=== PATIENT | male | born 1940 | race Caucasian/White ===

== ENCOUNTER → 2018-11-10 | Outpatient (CLI) | payer MEDICARE ==
--- NOTE | 2018-11-10 07:33 | CT ---
EXAMINATION TYPE: CT abdomen pelvis wo con DATE OF EXAM: 11/10/2018 COMPARISON: 04/10/2016 HISTORY: Chronic UTI CT DLP: 706.5 mGycm Examination of the solid and hollow viscera is limited given the lack of contrast. FINDINGS: LUNG BASES: No evidence for nodule. No evidence for infiltrate. LIVER/GB: The gallbladder is unremarkable. No space-occupying hepatic lesion. PANCREAS: No pancreatic mass identified. No inflammatory process seen. SPLEEN: No evidence for splenomegaly. No intrasplenic lesions seen. ADRENALS: No adrenal nodules identified. No evidence for thickening. KIDNEYS: No evidence for renal mass. 7.9 mm nonobstructing calculus lower pole left kidney. No hydron ephrosis. The urinary bladder is thick walled and poorly distended. There is a large diverticulum not ed posteriorly and to the right of midline measuring 3.6 x 4.2 cm. BOWEL: Appendix has a normal appearance. No evidence of bowel obstruction. No inflammatory process. P ostsurgical changes of the sigmoid colon. Lymph nodes: No evidence for adenopathy greater than 1 cm. Abdominal aorta: Atheromatous changes seen. 3.1 cm AP dimension aneurysm of the abdominal aorta. Viridiana alva organs: No significant abnormality. Other: No significant abnormality. IMPRESSION: 1. Nonobstructing right-sided nephrolithiasis. 2. The urinary bladder is poorly distended with the thick wall noted. Bladder diverticulum as discuss ed.
== END | disposition home or self-care (01) ==
LOC: RADCTMAIN 06:59
PROVIDERS: ATTEND Urology
DX: N20.0 Calculus of kidney (principal); N32.3 Diverticulum of bladder
CPT/HCPCS: 74176

== ENCOUNTER → 2018-12-27 | Outpatient (CLI) | payer MEDICARE ==
--- NOTE | 2018-12-27 10:20 | CT ---
EXAMINATION TYPE: CT abdomen pelvis w con DATE OF EXAM: 12/27/2018 COMPARISON: 11/10/2018 and 04/10/2016 HISTORY: 78-year-old male Periumbilical pain TECHNIQUE: Contiguous axial scanning of the abdomen and pelvis following administration of 100 ml Iso valente 300 IV contrast. Delayed images through the kidneys and coronal/sagittal reconstructions perform ed. CT DLP: 1326.1 mGycm Automated exposure control for dose reduction was used. FINDINGS: Heart normal size without pericardial effusion. Stable to smaller 6 mm right paracardiac lymph node. Lung bases clear without pleural effusion. Tiny hilar hernia. No focal liver lesion or biliary ductal dilatation. Portal venous system is patent. Gallbladder is collapsed. Adrenal glands, right kidney, spleen, pancreas appear within normal limits. A couple subcentimeter cortical hypodensities left kidney too small for accurate CT characterization, probable cysts. Redemonstrated nonenlarged mildly enlarged upper abdominal lymph nodes in the gastrohepatic ligament, [place] hepatic, gastroduodenal, and portacaval regions measuring up to 1.4 cm, unchanged from 9 and smaller from 04/10/2016. No dilated small bowel, free fluid, or free air. There is mild to moderate atherosclerotic calcifications abdominal aorta and iliac arteries. 3.1 cm i nfrarenal abdominal aortic aneurysm. Anterior abdominal wall mesh repair. Slight thickening in the periumbilical region is unchanged. Normal appendix. Scattered moderate stool. Left-sided clonic diverticulosis. Staple line at the dista l sigmoid from prior resection and reanastomosis. Circumferential bladder wall thickening with redemonstration of a 2.7 cm right posterior bladder wall diverticulum. Suspect prior TURP. Prostate gland is mildly prominent and 4.2 cm wide. No pelvic lymp hadenopathy seen. Bones: Degenerative changes of the hips and SI joints and facet arthropathy lower lumbar spine. IMPRESSION: 1. RIGHT PERICARDIAC AND UPPER ABDOMINAL LYMPHADENOPATHY MEASURING UP TO 1.4 CM UNCHANGED FROM 11/11/19 19 AND OVERALL SMALLER FROM 04/10/2016 SUGGESTING A BENIGN, CHRONIC POSTINFLAMMATORY OR REACTIVE ETIOL OGY. 2. LEFT-SIDED COLONIC DIVERTICULOSIS WITHOUT ACUTE DIVERTICULITIS. PRIOR DISTAL COLONIC SURGERY. 3. CIRCUMFERENTIAL BLADDER WALL THICKENING SUGGESTS CHRONIC BLADDER WALL HYPERTROPHY OR CYSTITIS. STA BLE 2.7 CM RIGHT POSTERIOR BLADDER WALL DIVERTICULUM. 4. STABLE MESH REPAIR IN THE PERIUMBILICAL REGION. OVERALL APPEARANCE IS UNCHANGED.
== END | disposition home or self-care (01) ==
LOC: RADCTMAIN 07:26
PROVIDERS: ATTEND Nurse Practitioner Family
DX: K57.30 Diverticulosis of large intestine without perforation or abscess without bleeding (principal); R59.1 Generalized enlarged lymph nodes; N32.3 Diverticulum of bladder; Z98.890 Other specified postprocedural states
CPT/HCPCS: 82565; 84520; 74177; 36415; Q9967

== ENCOUNTER → 2019-03-28 | Outpatient (CLI) | payer MEDICARE ==
--- NOTE | 2019-03-28 10:48 | US ---
EXAMINATION TYPE: US liver DATE OF EXAM: 03/28/2019 COMPARISON: NONE CLINICAL HISTORY: R94.5 abn liver function. EXAM MEASUREMENTS: Liver Length: 14.5 cm Gallbladder Wall: 0.7 cm CBD: 0.5 cm Right Kidney: 10.7 x 5.7 x 5.2 cm Pancreas: Obscured by bowel gas Liver: grossly heterogenous course echotexture with thickening around vessel crockett Gallbladder: wall thickened Evidence for sonographic Salter's sign: no CBD: wnl Right Kidney: wnl IMPRESSION: 1. Moderate fatty infiltration of the liver. 2. Gallbladder wall thickening
== END | disposition home or self-care (01) ==
LOC: RADUSWWP 09:22
PROVIDERS: ATTEND Internal Medicine
DX: K76.0 Fatty (change of) liver, not elsewhere classified (principal); K82.8 Other specified diseases of gallbladder
CPT/HCPCS: 76705

== ENCOUNTER → 2019-04-09 | Outpatient (CLI) | payer MEDICARE ==
--- NOTE | 2019-04-09 11:05 | NM ---
EXAMINATION TYPE: NM hepatobiliary w EF DATE OF EXAM: 04/09/2019 COMPARISON: NONE HISTORY: Right upper quadrant pain TECHNIQUE: After the intravenous administration of 4.41 mCi Tc 99m Mebrofenin hepatobiliary scintigra phy is performed. Immediate images post injection. FINDINGS: There is satisfactory initial accumulation of tracer by the liver. The gallbladder is visualized wit hin 26 minutes. The small bowel activity is noted within 16 minutes. At one hour 8 ounces of oral e nsure plus is given to mimic CCK and gallbladder ejection fraction is calculated at 25 %, abnormal. Therefore there is no scintigraphic evidence of cystic or common bile duct obstruction to suggest acu te cholecystitis or gallbladder dyskinesia. IMPRESSION: 1. Abnormal gallbladder ejection fraction indicative of biliary dyskinesia. 2. No scintigraphic evidence of acute or chronic cholecystitis.
== END ==
LOC: RADNMMAIN 05:55
PROVIDERS: ATTEND Internal Medicine
DX: R93.3 Abnormal findings on diagnostic imaging of other parts of digestive tract (principal)
CPT/HCPCS: 78226; A9537

== ENCOUNTER → 2021-06-23 | Outpatient (CLI) | payer MEDICARE ==
[2021-06-23 15:15] LABS: HCT 39.9 % (39.6-50.0); HGB 12.4 g/dL (13.0-17.0); MCH 29.9 pg (27.0-32.0); MCHC 31.1 g/dL (32.0-37.0); MCV 96.1 fL (80.0-97.0); Mean Platelet Volume 11.4 fL (9.5-12.2); Platelet Count 162 X 10*3/uL (140-440); RBC 4.15 X 10*6/uL (4.40-5.60); RDW 14.6 % (11.5-14.5); WBC 4.31 X 10*3/uL (4.50-10.00)
[2021-06-23 17:18] LABS: Hepatitis B Surface Antigen Nonreactive (Nonreactive); Hepatitis C IgG Antibody Nonreactive (Nonreactive)
[2021-06-23 17:49] LABS: Ceruloplasmin 30.1 mg/dL (20.0-60.0)
[2021-06-23 19:27] LABS: African American GFR (CKD) 82.6 (60.0-200.0); Albumin 3.9 g/dL (3.8-4.9); Albumin/Globulin Ratio 1.11 (1.60-3.17); Anion Gap 11.9 mmol/L (10.00-18.00); BUN/Creat Ratio 18.3 Ratio (12.00-20.00); Blood Urea Nitrogen 18.3 mg/dL (9.0-27.0); Calcium 9.5 mg/dL (8.7-10.3); Carbon Dioxide 22.1 mmol/L (20.0-27.5); Globulin 3.5 g/dL (1.6-3.3); Non-African American GFR(CKD) 71.3 (60.0-200.0); Potassium 4.7 mmol/L (3.5-5.5); Total Bilirubin 0.5 mg/dL (0.30-1.20); Total Protein 7.4 g/dL (6.2-8.2)
[2021-06-23 19:47] LABS: Protein, Total 7.5 g/dL (6.2-8.2)
[2021-06-23 22:27] LABS: % Iron Saturation 16.05 (15.00-50.00); Ferritin 96.4 ng/mL (22.0-322.0)
[2021-06-24 13:53] LABS: Albumin 3.66 g/dL (3.80-4.90)
== END | disposition home or self-care (01) ==
LOC: LABWHC1 08:53
PROVIDERS: ATTEND Internal Medicine Gastroenterology
DX: R74.8 Abnormal levels of other serum enzymes (principal); K76.9 Liver disease, unspecified
CPT/HCPCS: 36415; 80053; 82103; 82390; 82728; 83516; 83540; 83550; 84165; 85027; 86038; 86803; 87340

== ENCOUNTER → 2021-11-24 | Outpatient (CLI) | payer MEDICARE ==
[2021-11-24 14:44] LABS: ALT 49 U/L (10-49); AST 44 U/L (14-35); GGT 159 U/L (0-73)
== END | disposition home or self-care (01) ==
LOC: LABWHC1 09:35
PROVIDERS: ATTEND Internal Medicine
DX: R94.5 Abnormal results of liver function studies (principal)
CPT/HCPCS: 36415; 82977; 84450; 84460